=== PATIENT | female | born 1995 | race African-American/Black ===

== ENCOUNTER 2023-06-06 12:36 | Emergency (ER) | payer MEDICAID ==
[2023-06-06 12:43] VITALS: O2SAT 98
[2023-06-06 13:06] LABS: BASOPHILS % (AUTO) 0.3 %; EOSINOPHILS % (AUTO) 0.3 %; HCT - HEMATOCRIT 38.8 % (37.0-47.0); HGB - HEMOGLOBIN 13.5 g/dL (12.0-16.0); LYMPHOCYTES # (AUTO) 1.5 10^3/uL (1.5-3.5); MEAN CORPUSCULAR HEMOGLOBIN 31.5 pg (27.0-31.0); MEAN CORPUSCULAR HGB CONC 34.8 g/dL (32.0-36.0); MEAN CORPUSCULAR VOLUME 90.7 fL (81.0-99.0); MEAN PLATELET VOLUME 10.3 fL (7.9-10.8); MONOCYTES # (AUTO) 0.5 10^3/uL (0.0-1.0); MONOCYTES % (AUTO) 8.7 %; NEUTROPHILS # (AUTO) 3.7 10^3/uL (1.5-6.6); NEUTROPHILS % (AUTO) 64.4 %; PLT - PLATELET COUNT 204 10^3/uL (130-450); RED BLOOD COUNT 4.28 10^6/uL (4.20-5.40); RED CELL DISTRIBUTION WIDTH 12.5 % (12.0-15.0); WHITE BLOOD COUNT 5.7 x10^3/uL (4.8-10.8)
[2023-06-06 13:17] LABS: BILIRUBIN,URINE NEGATIVE (NEGATIVE); GLUCOSE, URINE (UA) NEGATIVE (NEGATIVE); KETONES,URINE (UA) NEGATIVE (NEGATIVE); LEUKOCYTE ESTERASE, URINE NEGATIVE (NEGATIVE); NITRITE,URINE NEGATIVE (NEGATIVE); OCCULT BLOOD,URINE SMALL (NEGATIVE); PROTEIN,URINE NEGATIVE (NEGATIVE); UROBILINOGEN,URINE 0.2 (NORMAL) E.U./dL (NORMAL)
[2023-06-06 13:19] LABS: CLARITY,URINE HAZY (CLEAR)
[2023-06-06 13:20] LABS: HCG UR QUAL POSITIVE
[2023-06-06 13:23] LABS: ALBUMIN/GLOBULIN RATIO 1.1 (1.0-2.2); BILIRUBIN,TOTAL 0.6 mg/dL (0.2-1.0); CALCIUM 9.5 mg/dL (8.5-10.3); CREATININE 0.7 mg/dL (0.6-1.3); POTASSIUM 3.8 mmol/L (3.5-4.5); TOTAL PROTEIN 7.7 g/dL (6.4-8.9)
[2023-06-06 13:28] LABS: BACTERIA,URINE Few /HPF (None Seen); MUCUS,URINE Marked Strands; RBC,URINE 0-5 /HPF (0-5); SQUAMOUS EPITHELIAL CELL,UR MANY Squamous (<= Few); WBC,URINE 0-3 /HPF (0-5)
--- NOTE | 2023-06-06 15:48 | ED Physician Documentation ---
PD HPI ABD PAIN - Stated complaint Stated Complaint: LOWER BACK PX, N/V - Chief complaint Chief Complaint: Abd Pain - History obtained from History obtained from: Patient - Additional information Additional information: This is a G8 now G9. She has 5 kids at home, history of 1 miscarriage, 1 therapeutic , and she also carried a for her sister. Her last menses was March 19. She admits possibility of and is confirmed positive here. Last week she has had low back pain generally worsening associated with cloudy urine. For the last few days she has been vomiting and the pain is more severe. No fevers. PD PAST MEDICAL HISTORY - Present Medications Home Medications: Ambulatory Orders Medication Instructions Recorded Confirmed Metoclopramide [Reglan] 10 mg PO Q6H PRN #20 tablet 06/06/23 - Allergies Allergies/Adverse Reactions: Allergies Allergy/AdvReac Type Severity Reaction Status Date / Time No Known Drug Allergies Allergy Verified 06/06/23 12:39 PD ED PE NORMAL - Vitals Vital signs reviewed: Yes - General General: Alert and oriented X 3, No acute distress - Abdomen Abdomen: Non tender, Other (Mild left flank pain/tenderness.) - Female Female : Other (Bedside ultrasound demonstrates live intrauterine heart rate of 148 and 11 weeks and 3 days by CRL.) - Neuro Neuro: Alert and oriented X 3, Normal speech Results - Vitals Vitals: Vital Signs - 24 hr 06/06/23 12:39 Temperature 36.8 C Heart Rate 77 Respiratory 16 Rate Blood Pressure 133/85 H O2 Saturation 98 Oxygen O2 Source Room air - Labs Labs: Laboratory Tests 06/06/23 06/06/23 06/06/23 12:50 13:00 13:00 WBC 5.7 RBC 4.28 Hgb 13.5 Hct 38.8 MCV 90.7 MCH 31.5 H MCHC 34.8 RDW 12.5 Plt Count 204 MPV 10.3 Neut # (Auto) 3.7 Lymph # (Auto) 1.5 [place] # (Auto) 0.5 Eos # (Auto) 0.0 Baso # (Auto) 0.0 Absolute Nucleated RBC 0.00 Nucleated RBC % 0.0 Sodium 134 L Potassium 3.8 Chloride 103 Carbon Dioxide 27 Anion Gap 4.0 L BUN 9 Creatinine 0.7 Estimated GFR (MDRD) 98 Glucose 85 Calcium 9.5 Total Bilirubin 0.6 AST 11 ALT 9 L Alkaline Phosphatase 57 Total Protein 7.7 Albumin 4.0 Globulin 3.7 Albumin/Globulin Ratio 1.1 Lipase 17 Beta HCG, Quant Urine Color YELLOW Urine Clarity HAZY Urine pH 6.0 Ur Specific [place] >=1.030 H Urine Protein NEGATIVE Urine Glucose (UA) NEGATIVE Urine Ketones NEGATIVE Urine Occult Blood SMALL H Urine Nitrite NEGATIVE Urine Bilirubin NEGATIVE Urine Urobilinogen 0.2 (NORMAL) Ur Leukocyte Esterase NEGATIVE Urine RBC 0-5 Urine WBC 0-3 Ur Squamous Epith Cells MANY Squamous H Urine Bacteria Few Urine Mucus Marked Strands Ur Microscopic Review INDICATED Urine Culture Comments NOT INDICATED Urine HCG, Qual POSITIVE Blood Type 06/06/23 06/06/23 13:00 15:45 WBC RBC Hgb Hct MCV MCH MCHC RDW Plt Count MPV Neut # (Auto) Lymph # (Auto) [place] # (Auto) Eos # (Auto) Baso # (Auto) Absolute Nucleated RBC Nucleated RBC % Sodium Potassium Chloride Carbon Dioxide Anion Gap BUN Creatinine Estimated GFR (MDRD) Glucose Calcium Total Bilirubin AST ALT Alkaline Phosphatase Total Protein Albumin Globulin Albumin/Globulin Ratio Lipase Beta HCG, Quant 338991.2 Urine Color Urine Clarity Urine pH Ur Specific [place] Urine Protein Urine Glucose (UA) Urine Ketones Urine Occult Blood Urine Nitrite Urine Bilirubin Urine Urobilinogen Ur Leukocyte Esterase Urine RBC Urine WBC Ur Squamous Epith Cells Urine Bacteria Urine Mucus Ur Microscopic Review Urine Culture Comments Urine HCG, Qual Blood Type O POSITIVE PD Medical Decision Making - ED course ED course: This is a multiple risk 28-year-old who presents with flank pain and lack of periods. She is found to be with an IUP that is reassuring looking. Urinalysis showing small blood but no red cells, and otherwise unremarkable without evidence of pyelonephritis. After administration of IV fluids, small dose of Toradol and Zofran she was feeling much better. Heterotopic is considered, but she has no free fluid on ultrasound. Departure - Departure Disposition: 01 Home, Self Care Clinical Impression: 11 weeks gestation of Vomiting Qualifiers: Vomiting type: unspecified Nausea presence: with nausea Qualified Code(s): R11.2 - Nausea with vomiting, unspecified Back pain Qualifiers: Back pain location: low back pain Chronicity: acute Back pain laterality: bilateral Sciatica presence: without sciatica Qualified Code(s): M54.50 - Low back pain, unspecified Condition: Good Record reviewed to determine appropriate education?: Yes Instructions: ED Preg Morning Sickness, ED Neck Back Pain General Follow-Up: [facility] [Provider Group] Prescriptions: Metoclopramide [Reglan] 10 mg PO Q6H PRN #20 tablet PRN Reason: nausea or headache Comments: Tylenol as needed for pain, I am also prescribing something for the nausea. You should follow-up with OB, the numbers on this form, calling tomorrow for the next available appointment. Return for new or worsening symptoms. Forms: PCP List
[2023-06-06] MEDS ORDERED: ONDANSETRON 4 MG/2 ML VIAL IVP STA (15:49)
[2023-06-06] MEDS ORDERED: KETOROLAC 15 MG/ML VIAL IVP STA (15:49)
[2023-06-06] MEDS ORDERED: SODIUM CHLORIDE 0.9% 1,000 ML IV STA (15:49)
[2023-06-06 17:12] VITALS: BP 128/74
== END 2023-06-06 17:01 | disposition home or self-care (01) ==
LOC: ED 12:36
DX: O21.0 Mild hyperemesis gravidarum (principal); Z3A.11 11 weeks gestation of pregnancy; O26.891 Other specified pregnancy related conditions, first trimester; M54.50 Low back pain, unspecified
CPT/HCPCS: 36415; 80053; 81001; 81003; 81025; 83690; 84702; 85025; 86900; 86901; 87086; 96374; 96375; 99283